=== PATIENT | male | born 1975 | race Caucasian/White ===

== ENCOUNTER 2019-07-30 07:54 | Observation (INO) ==
[2019-07-30] MEDS ORDERED: cloNIDine HCl 0.1 MG TABLET PO STA (08:22)
[2019-07-30] MEDS ORDERED: Aspirin 81 MG TAB.CHEW PO ONE (08:22)
--- NOTE | 2019-07-30 08:45 | Emergency Department Note ---
Disposition Clinical Impression: Chest pain, Hypertension Disposition: Admitted As Inpatient Time of Disposition: 11:29 Chest Pain HPI - General Chief Complaint: ED General Medical Stated Complaint: pressure to left arm and burning to left axilla Time Seen by Provider: 07/30/19 08:08 Source: patient Mode of arrival: ambulatory Limitations: no limitations Vital Signs Reviewed: Yes Nursing Notes Reviewed: Yes - History of Present Illness HPI Narrative: 43-year-old male has been having intermittent chest pain over the past week usually last about 30-45 minutes a couple times a day but today started in his neck and down into the arm he had no nausea no vomiting no diaphoresis with that started 8:00 in the 43 that was still continuing at that time he denies though any loss of bowel or bladder control denies any numbness tingling weakness he denies any fever chills joint aches she denies any decreased exercise tolerance. He does have a history of recently seeing his physician is getting set up for a stress test they do not know the date and time he had and they are monitoring his blood pressure but he was not started on blood pressure medicine that his blood pressure been running 150+ over 90s plus. He is not taking a baby aspirin or anything else at this time denies cough hemoptysis sputum production diarrhea melena hematochezia hematemesis numbness tingling weakness or any trauma all systems have been reviewed and otherwise negative Pt complaint: chest pain Onset (ago): week(s) Duration: intermittent Onset: during rest, during exertion Pain Location: left chest Severity: none Severity scale (1-10): 0 Quality: aching, heaviness Pain Radiation: LUE, neck Improves with: nothing Worsens with: nothing - Related Data Home Medications Medication Instructions Recorded Confirmed No Known Home Drugs 07/30/19 07/30/19 Allergies Allergy/AdvReac Type Severity Reaction Status Date / Time Bee Pollen Allergy Hives Verified 09/14/16 20:00 All systems ED: reviewed and negative except as stated. Review of Systems: As Per HPI Constitutional: Denies: fever, chills, weakness Eyes: Denies: eye pain, eye discharge ENT ED: Denies: ear pain, throat pain Cardiovascular: Reports: chest pain. Denies: palpitations, dyspnea on exertion Respiratory: Denies: cough, dyspnea, wheezes Gastrointestinal: Denies: abdominal pain, nausea, hematochezia Genitourinary: Denies: urgency, dysuria, frequency Musculoskeletal: Reports: neck pain. Denies: back pain Integumentary: Denies: rash, abrasion Neurological: Denies: headache, weakness Psychiatric: Denies: anxiety, depression Endocrine: Denies: fatigue Hematological/Lymphatic: Denies: easy bleeding Allergic/Immunologic: Denies: facial swelling Chest Pain PMH - Past Medical History Medical history: Reports: GERD Psychiatric history: Reports: no psych history - Social History Smoking Status: Never smoker Alcohol use: Reports: occasionally Drug use: Reports: none Physical Exam - General Limitations: no limitations General appearance: alert, in no apparent distress, anxious - Head Head exam: atraumatic, normocephalic, normal inspection - Eye Eye exam: Present: normal appearance, PERRL, EOMI - ENT ENT exam: normal exam, normal oropharynx, mucous membranes moist, TM's normal bilaterally, normal external ear exam - Neck Neck exam: Present: normal inspection, full ROM, trachea midline - Chest Chest inspection: Present: normal inspection, symmetric chest wall rise - Respiratory Respiratory exam: Present: normal lung sounds bilaterally - Cardiovascular Cardiovascular exam: Present: regular rate, normal rhythm, normal heart sounds - Abdominal Exam Abdominal exam: Present: soft, Non-Tender, normal bowel sounds - Extremities Exam Extremities exam: Present: normal inspection, full ROM, normal capillary refill. Absent: tenderness, calf tenderness - Expanded Upper Extremity Exam Shoulder exam: Present: normal inspection, full ROM Arm exam: Present: normal inspection, full ROM Elbow exam: Present: normal inspection, full ROM Forearm/Wrist exam: Present: normal inspection, full ROM Hand exam: Present: normal inspection, full ROM Vascular exam: Normal: capillary refill, radial pulse - Expanded Lower Extremity Exam Hip/Pelvis exam: Present: normal inspection, full ROM Upper leg exam: Present: normal inspection, full ROM Knee exam: Present: normal inspection, full ROM Lower leg exam: Present: normal inspection, full ROM Ankle exam: Present: normal inspection, full ROM Foot/toe exam: Present: normal inspection, full ROM Neurovascular/Tendon exam: Present: normal capillary refill, normal fine/light touch. Absent: motor deficit, sensory deficit, tendon deficit Gait: observed and normal - Back Exam Back exam: Present: normal inspection, full ROM. Absent: muscle spasm - Neurological Exam Neurological exam: Present: alert, oriented X3, CN II-XII intact, normal gait - Psychiatric Psychiatric exam: Present: normal affect, normal mood - Skin Skin exam: Present: warm, dry, intact, normal color Course Course Narrative: Patient was immediately seen and evaluated examinations are patient is currently asymptomatic he was given clonidine because the patient looked pressure was slightly elevated patient she felt much better after having received this with all results back we discussed care treatment management with him having intermittent discomfort we have recommended observation he is agreeable transferred to [facility] stable Vital Signs Temperature 97.6 F 07/30/19 07:55 Pulse Rate 79 07/30/19 07:55 Respiratory Rate 18 07/30/19 07:55 Blood Pressure 173/103 07/30/19 07:55 O2 Sat by Pulse Oximetry 98 07/30/19 07:55 Temperature 97.6 F 07/30/19 07:55 Pulse Rate 65 07/30/19 11:00 Respiratory Rate 18 07/30/19 11:00 Blood Pressure 111/73 07/30/19 11:00 O2 Sat by Pulse Oximetry 97 07/30/19 11:00 Oxygen Delivery Oxygen Delivery Room Air Chest Pain - Differential Diagnosis Likely: chest pain - Medical Records Medical records reviewed: Yes I reviewed the patient's medical records. - Lab Data Lab results reviewed: Yes I reviewed the patient's lab results. Result diagrams: 07/30/19 08:35 07/30/19 08:35 Lab Results 07/30/19 07/30/19 07/30/19 Range/Units 08:35 08:35 08:35 WBC 4.4 (4.3-11.1) K/mcL RBC 4.62 (4.19-5.50) M/mcL Hgb 14.4 (12.9-16.9) g/dL Hct 41.2 (37.5-50.1) % MCV 89.2 (83.0-100.0) fL MCH 31.2 (28.0-33.3) pg MCHC 35.0 (31.6-35.5) g/dL RDW 12.4 (11.5-14.5) % Plt Count 159 (140-400) K/mcL MPV 9.6 (9.4-12.4) fL Immature Gran % 0.2 (0-4) % Seg Neutrophils % 67.9 % Lymphocytes % 19.9 % Monocytes % 7.7 % Eosinophils % 3.6 % Basophils % 0.7 % Neutrophils # 3.0 (1.6-8.9) K/mcL Lymphocytes # 0.9 (0.6-4.6) K/mcL Monocytes # 0.3 (0.0-1.3) K/mcL Eosinophils # 0.2 (0.0-0.6) K/mcL Basophils # 0.0 (0.0-0.2) K/mcL PT (9.4-12.1) Seconds INR APTT 33.0 (26.0-36.0) Seconds Sodium 137 (136-145) mEq/L Potassium 4.1 (3.5-5.1) mEq/L Chloride 104 (98-107) mEq/L Carbon Dioxide 26 (23-29) mEq/L BUN 20 (6-20) mg/dL Creatinine 0.99 (0.70-1.30) mg/dL Est GFR ( Amer) > 60 (> 60) Est GFR (Non-Af Amer) > 60 (> 60) BUN/Creatinine Ratio 20 (6-26) Glucose 112 H (70-105) mg/dL Calculated Osmolality 287 (280-300) Calcium 8.9 (8.6-10.3) mg/dL Total Bilirubin 0.9 (0.3-1.0) mg/dL AST 24 (13-39) Units/L ALT 45 (7-52) Units/L Alkaline Phosphatase 68 (34-104) Units/L Troponin I < 0.03 (< 0.04) ng/mL Serum Total Protein 7.2 (6.4-8.9) g/dL Albumin 4.5 (3.5-5.7) g/dL Globulin 2.7 (2.4-3.5) g/dL Albumin/Globulin Ratio 1.7 (1.1-2.2) 07/30/19 Range/Units 08:35 WBC (4.3-11.1) K/mcL RBC (4.19-5.50) M/mcL Hgb (12.9-16.9) g/dL Hct (37.5-50.1) % MCV (83.0-100.0) fL MCH (28.0-33.3) pg MCHC (31.6-35.5) g/dL RDW (11.5-14.5) % Plt Count (140-400) K/mcL MPV (9.4-12.4) fL Immature Gran % (0-4) % Seg Neutrophils % % Lymphocytes % % Monocytes % % Eosinophils % % Basophils % % Neutrophils # (1.6-8.9) K/mcL Lymphocytes # (0.6-4.6) K/mcL Monocytes # (0.0-1.3) K/mcL Eosinophils # (0.0-0.6) K/mcL Basophils # (0.0-0.2) K/mcL PT 11.8 (9.4-12.1) Seconds INR 1.0 APTT (26.0-36.0) Seconds Sodium (136-145) mEq/L Potassium (3.5-5.1) mEq/L Chloride (98-107) mEq/L Carbon Dioxide (23-29) mEq/L BUN (6-20) mg/dL Creatinine (0.70-1.30) mg/dL Est GFR ( Amer) (> 60) Est GFR (Non-Af Amer) (> 60) BUN/Creatinine Ratio (6-26) Glucose (70-105) mg/dL Calculated Osmolality (280-300) Calcium (8.6-10.3) mg/dL Total Bilirubin (0.3-1.0) mg/dL AST (13-39) Units/L ALT (7-52) Units/L Alkaline Phosphatase (34-104) Units/L Troponin I (< 0.04) ng/mL Serum Total Protein (6.4-8.9) g/dL Albumin (3.5-5.7) g/dL Globulin (2.4-3.5) g/dL Albumin/Globulin Ratio (1.1-2.2) - Radiology Data Radiology results reviewed: Yes I reviewed the patient's radiology results. ITS Impressions Chest X-Ray 07/30/19 08:45 IMPRESSION: Normal chest. D/ / 07/30/2019 09:30:35 Osmin Paredes MD / [email or web address] Interpreting Provider: Osmin Paredes MD - EKG Data EKG attestation: Yes I reviewed and interpreted this EKG. EKG results narrative: Normal sinus rhythm rate 75 SD 141 QRS 86 QT [address] segment elevation ischemic or injury Heart Score - Score History: Slightly Suspicious EKG: Normal Age: 45-65 Risk Factors: 1-2 risk factors Troponin: Less than normal limit HEART Score Total: 2 Critical Care Time Critical Care Time: No
[2019-07-30 08:52] LABS: Basophils % 0.7 %; Eosinophils # 0.2 K/mcL (0.0-0.6); Eosinophils % 3.6 %; Hematocrit 41.2 % (37.5-50.1); Hemoglobin 14.4 g/dL (12.9-16.9); Immature Granulocytes % 0.2 % (0-4); Lymphocytes # 0.9 K/mcL (0.6-4.6); Lymphocytes % 19.9 %; Mean Corpuscular Hemoglobin 31.2 pg (28.0-33.3); Mean Corpuscular Volume 89.2 fL (83.0-100.0); Mean Platelet Volume 9.6 fL (9.4-12.4); Monocytes # 0.3 K/mcL (0.0-1.3); Monocytes % 7.7 %; Platelet Count 159 K/mcL (140-400); Red Blood Count 4.62 M/mcL (4.19-5.50); Red Cell Distribution Width 12.4 % (11.5-14.5); Segmented Neutrophils % 67.9 %; White Blood Count 4.4 K/mcL (4.3-11.1)
[2019-07-30 08:54] LABS: Prothrombin Time 11.8 Seconds (9.4-12.1)
[2019-07-30 09:00] LABS: Alanine Aminotransferase 45 Units/L (7-52); Albumin 4.5 g/dL (3.5-5.7); Albumin/Globulin Ratio 1.7 (1.1-2.2); Alkaline Phosphatase 68 Units/L (34-104); Aspartate Amino Transferase 24 Units/L (13-39); BUN/Creatinine Ratio 20 (6-26); Bilirubin,Total 0.9 mg/dL (0.3-1.0); Blood Urea Nitrogen 20 mg/dL (6-20); Calcium 8.9 mg/dL (8.6-10.3); Carbon Dioxide 26 mEq/L (23-29); Chloride 104 mEq/L (98-107); Globulin 2.7 g/dL (2.4-3.5); Glucose 112 mg/dL (70-105); Osmolality,Calculated 287 (280-300); Potassium 4.1 mEq/L (3.5-5.1); Sodium 137 mEq/L (136-145); Total Protein 7.2 g/dL (6.4-8.9); eGFR For African Americans > 60 (> 60); eGFR For Non-African Americans > 60 (> 60)
[2019-07-30 09:03] LABS: Troponin I < 0.03 ng/mL (< 0.04)
[2019-07-30] MEDS ORDERED: Naloxone 0.4 MG/ML INJ IVP PRN (11:54)
[2019-07-30] MEDS ORDERED: cloNIDine HCl 0.1 MG TABLET PO PRN (11:54)
[2019-07-30] MEDS: Aspirin 81 MG TAB.CHEW PO SCH (13:42)
--- NOTE | 2019-07-30 14:58 | Electrocardiograph Report ---
[place] [id number] Test Date: 2019-07-30 Pat Name: Philippe Rosario Department: EDP-12 Room: [facility] Gender: M [employer]: : 1975 Requested By: Kim Timmons Order Number: [id number] Reading MD: Rommel Elam Measurements Intervals [place] Rate: 75 P: 51 AR: 141 QRS: 37 QRSD: 86 T: 32 QT: 380 QTc: 425 Interpretive Statements Sinus rhythm Electronically Signed On 07-30-2019 14:57:20 EDT by Rommel Elam
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
[2019-07-30] MEDS ORDERED: GI Cocktail 40 ML EACH PO ONE (15:29)
[2019-07-31 03:56] LABS: Basophils % 0.8 %; Eosinophils # 0.2 K/mcL (0.0-0.6); Hematocrit 38.8 % (37.5-50.1); Hemoglobin 13.7 g/dL (12.9-16.9); Immature Granulocytes % 0.2 % (0-4); Lymphocytes # 1.3 K/mcL (0.6-4.6); Lymphocytes % 27.6 %; Mean Corpuscular HGB Conc 35.3 g/dL (31.6-35.5); Mean Corpuscular Hemoglobin 31.4 pg (28.0-33.3); Mean Corpuscular Volume 88.8 fL (83.0-100.0); Mean Platelet Volume 9.3 fL (9.4-12.4); Monocytes # 0.4 K/mcL (0.0-1.3); Monocytes % 8.6 %; Neutrophils # 2.8 K/mcL (1.6-8.9); Platelet Count 143 K/mcL (140-400); Red Blood Count 4.37 M/mcL (4.19-5.50); Red Cell Distribution Width 12.2 % (11.5-14.5); Segmented Neutrophils % 58.8 %; White Blood Count 4.7 K/mcL (4.3-11.1)
[2019-07-31 04:20] LABS: BUN/Creatinine Ratio 17 (6-26); Blood Urea Nitrogen 20 mg/dL (6-20); Calcium 8.7 mg/dL (8.6-10.3); Carbon Dioxide 29 mEq/L (23-29); Chloride 105 mEq/L (98-107); Chol/HDL Ratio 4.1 (0-4.9); Cholesterol 169 mg/dL (< 200); Glucose 109 mg/dL (70-105); HDL Cholesterol 41 mg/dL (40-59); LDL Cholesterol,Calculated 101 mg/dL (0-99); Osmolality,Calculated 289 (280-300); Potassium 4.2 mEq/L (3.5-5.1); Sodium 138 mEq/L (136-145); Triglycerides 136 mg/dL (< 150); eGFR For African Americans > 60 (> 60); eGFR For Non-African Americans > 60 (> 60)
[2019-07-31 07:20] VITALS: BP 125/84
[2019-07-31 07:42] LABS: Thyroid Stimulating Hormone 1.254 mcIU/mL (0.340-5.600)
[2019-07-31] MEDS: Aspirin 81 MG TAB.CHEW PO SCH (08:14)
--- NOTE | 2019-07-31 11:07 | Discharge Summary ---
Date of Encounter: 07/31/19 Time of Encounter: 10:58 - Discharge Diagnosis (1) Chest pain Priority: Primary Status: Acute Qualifiers: Chest pain type: precordial pain Qualified Code(s): R07.2 - Precordial pain (2) Hypertension Priority: Secondary Status: Acute Qualifiers: Hypertension type: unspecified Qualified Code(s): I10 - Essential (primary) hypertension Hospital course: Mr. Rosario is a 43 year old male who came to emergency room stating he had recurrent episode of discomfort in his chest after usual activities at work. He describes discomfort as a burning sensation in his left chest that seemed to radiate toward midline and up to his left neck area. He denies dyspnea cough or diaphoresis. He was evaluated in emergency room and admitted to [facility] for ongoing care needs. I saw him the afternoon of July 30 and performed a history and physical. Repeat cardiac enzymes showed no evidence of myocardial damage. GI cocktail was given with no change in the "burning" discomfort. The etiology of his discomfort was not determined. I told him I did not feel it was likely myocardial ischemic in origin based on his history and physical. I told him that his PCP can follow-up and order additional testing/referral if the discomfort persists. He was given a single dose of clonidine in emergency room and blood pressure remained normal throughout the remainder of his hospital stay. He will follow with his PCP Higinio Richards CNP within 1 week. - Time Spent with Patient Total time spent providing and/or coordinating discharge services: - Discharge Medications Prescriptions: Continued No Known Home Drugs 1 each .ROUTE AD each Home Medications: No Known Home Drugs 07/30/19 [History] Allergies/Adverse Reactions: Allergy/AdvReac Type Severity Reaction Status Date / Time Bee Pollen Allergy Hives Verified 09/14/16 20:00 Date of admission: 07/30/19 11:18 Primary care physician: Higinio Richards CNP - Constitutional Vitals: Temp Pulse Resp BP Pulse Ox 97.4 F L 64 16 125/84 95 07/31/19 07:20 07/31/19 07:20 07/31/19 07:20 07/31/19 07:20 07/31/19 07:20 - Patient Status Disposition: Home, Self-Care - Discharge Instructions Follow Up With: Higinio Richards CNP [Primary Care Provider] - 1 week - Diet and Activity Activity: resume usual activities as tolerated Diet: advance to your usual diet
== END 2019-07-31 12:20 | disposition home or self-care (01) ==
LOC: EMEROOPIK 07:54 → INPPIK 07:54
PROVIDERS: ADMIT Internal Medicine; ATTEND Internal Medicine